=== PATIENT | female | born 1965 | race Caucasian/White ===

== ENCOUNTER → 2017-03-31 | Outpatient (CLI) | payer OTHER ==
--- NOTE | 2017-03-31 14:09 | MH ---
cc: CAIO WILLIAMSON MD, CECILLE A. M.D. DATE OF ADMISSION: 03/31/2017 DATE OF : 1965 REASON FOR ADMISSION Scheduled for admission on 04/06 for anterior posterior repair. HISTORY OF PRESENT ILLNESS The patient is a 52-year-old white female, 1, para 1, with a spontaneous vaginal delivery of a 9 pound baby. She has had issues with pelvic organ prolapse, symptomatic. She was in the office, had stage II/III pelvic organ prolapse anterior and posterior compartment as well as loss of perineal body. The patient has opted for repair. PAST MEDICAL HISTORY The patient's medical history is notable for invasive ductal carcinoma, stage I, presently disease free. MEDICATIONS None. ALLERGIES PENICILLIN GIVES HER A RASH, but she has used cephalosporins. 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 No alcohol, tobacco, caffeine. GYNECOLOGIC HISTORY No STDs or abnormal Pap smears. OBSTETRICAL HISTORY One vaginal delivery. FAMILY HISTORY Noncontributory. REVIEW OF SYSTEMS Review of systems as above. No chest pain, orthopnea, PND. No nausea, vomiting, fever or chills. No vaginal bleeding or discharge. No change in bladder or bowel habits. PHYSICAL EXAMINATION VITAL SIGNS: She is afebrile, vital signs stable. Blood pressure is 120/70, height is 5 feet 6 inches, weight is 140, BMI is 22.5. GENERAL: Patient is alert and oriented, in no acute distress. No sign of cognitive dysfunction or depression. HEENT: Within normal limits. NECK: Supple. No JVD. CHEST: Clear. HEART: Regular rate and rhythm. ABDOMEN: Soft, nontender. No hepatosplenomegaly. No CVA tenderness. PELVIC EXAM: We note Aa is +1, Ap is 0. Point C is -6. Total vaginal length is 10. Genital hiatus is 10. Perineal body is 2. Perineal body is 2. Sacral nerve reflexes are normal. EXTREMITIES: Normal skin without rashes. NEURO EXAM: Nonfocal. No DVT signs. ASSESSMENT Patient with 2/3 pelvic organ prolapse anterior and posterior compartment. Also has large genital hiatus with corresponding diminution and loss of perineal body. The patient and I discussed options for management and treatment. At this point she wants to undergo repair of all areas of prolapse. She is aware of the risks, benefits and alternatives to the planned procedure including damage to surrounding organs, bleeding, infection, failure rates, pain with intercourse, need for catheter, also possibility of new onset stress urinary incontinence. Possibility of fistula and nerve damage were discussed. Also transfusion risks were discussed. At this point we anticipate outpatient procedure. We use DVT prophylaxis with sequential compression device and Ancef 2 grams IV for antibiotic prophylaxis. MD GREGORY Fuentes/TLL /1:31 PM /1:44 PM
[2017-03-31 14:37] LABS: AUTOMATED NEUTROPHIL # 3.7 TH/MM3 (1.8-7.7); BASOPHIL # 0.1 TH/MM3 (0-0.2); BASOPHIL % 0.8 % (0.0-2.0); EOSINOPHIL # 0.2 TH/MM3 (0-0.4); EOSINOPHIL % 2.8 % (0.0-4.0); HEMATOCRIT 38.8 % (35.0-46.0); HEMOGLOBIN 13.4 GM/DL (11.6-15.3); LYMPHOCYTE # 2.1 TH/MM3 (1.0-4.8); MEAN CORPUSCULAR HEMOGLOBIN 30.3 PG (27.0-34.0); MEAN CORPUSCULAR HGB CONC 34.4 % (32.0-36.0); MEAN PLATELET VOLUME 6.7 FL (7.0-11.0); MONO % 9.1 % (0.0-8.0); MONOCYTE # 0.6 TH/MM3 (0-0.9); NEUT % 56.3 % (16.0-70.0); PLATELET COUNT 334 TH/MM3 (150-450); RED BLOOD COUNT 4.41 MIL/MM3 (4.00-5.30); RED CELL DISTRIBUTION WIDTH 13.5 % (11.6-17.2); WHITE BLOOD COUNT 6.7 TH/MM3 (4.0-11.0)
[2017-03-31 14:59] LABS: ALBUMIN 3.9 GM/DL (3.4-5.0); ALT (GPT) 22 U/L (10-53); AST (GOT) 41 U/L (15-37); BICARBONATE 31.8 MEQ/L (21.0-32.0); BLOOD UREA NITROGEN 17 MG/DL (7-18); CALCIUM 8.9 MG/DL (8.5-10.1); CHLORIDE 103 MEQ/L (98-107); CREATININE 0.58 MG/DL (0.50-1.00); GLOMERULAR FILTRATION RATE 109 ML/MIN (>89); GLUCOSE,FASTING 91 MG/DL (74-99); SODIUM (NA) 139 MEQ/L (136-145)
[2017-03-31 15:01] LABS: ALKALINE PHOSPHATASE 80 U/L (45-117); TOTAL BILIRUBIN ADULT 0.3 MG/DL (0.2-1.0); TOTAL PROTEIN 7.7 GM/DL (6.4-8.2)
[2017-03-31 15:26] LABS: BILIRUBIN, URINE NEG (NEG); BLOOD, URINE NEG (NEG); GLUCOSE,URINE NEG (NEG); KETONE, URINE NEG (NEG); NITRITE,URINE NEG (NEG); PH, URINE 6.5 (5.0-8.5); SQUAMOUS EPITHELIAL CELL URINE 4 /hpf (0-5); URINE COLOR YELLOW (YELLW/STRAW); URINE LEUKOCYTE ESTERASE TRACE (NEG)
--- NOTE | 2017-04-02 01:03 | EKG ---
Date Performed: 03/31/2017 Time Performed: 14:02:55 PTAGE: 52 years EKG: Sinus rhythm NORMAL ECG NO PREVIOUS TRACING DOCTOR: Mendoza Reza Interpretating Date/Time 04/02/2017 01:02:16
== END ==
LOC: CPRE 13:43
PROVIDERS: ATTEND Obstetrics & Gynecology Gynecology
DX: Z01.810 Encounter for preprocedural cardiovascular examination (principal); Z01.812 Encounter for preprocedural laboratory examination; N81.11 Cystocele, midline; N81.6 Rectocele
CPT/HCPCS: 36415; 80053; 81001; 85025; 93005

== ENCOUNTER → 2017-04-06 | Day surgery (SDC) | payer OTHER ==
[~2017-04-06] VITALS: Ht 170.2 cm; Wt 67.0 kg
[~2017-04-06] MED LIST: ACETAMINOPHEN 1000 MG/100 ML 100 ML IV ONE; CHLORHEXIDINE GLUCONATE 2 % 1 PACK (2 CLOTHS) TOPICAL PRN; DEXAMETHASONE SOD PHOS 4 MG/ML VIAL IV ONE; DO NOT ADM ANY ANTICOAGULANT DRUGS PRN; ESTROGENS CONJUGATED VAG CREA 15 APPL/30 GM TUBE ONE; FLUORESCEIN SOD 10% SOLN 500 MG/5 ML AMP ONE; KETOROLAC TROMETHAMINE 30 MG/ML (IVP) VIAL IV PUSH ONE; KETOROLAC TROMETHAMINE 30 MG/ML (IVP) VIAL IV PUSH PRN; LACTATED RINGER'S 1000 ML INJ 1,000 ML IV ONE; LACTATED RINGER'S 1000 ML IV PRN; LIDOCAINE 1%/EPINEPHrine 1:100,000 SOLN 50 ML VIAL ONE; LIDOCAINE HCL 1% PF 5 ML SYRINGE OTHER ONE; METOPROLOL TARTRATE 25 MG TAB PO PRN; MIDAZOLAM HCL 2 MG/2 ML VIAL ONE; ONDANSETRON HCL 4 MG/2 ML VIAL IV ONE; ONDANSETRON HCL 4 MG/2 ML VIAL IV PUSH PRN; POVIDONE IODINE 5% (ANTISEPSIS KIT) 4 APPLICATIONS EACH NARE PRN; PROPOFOL 200 MG/20 ML AMP IV ONE; SODIUM CHLORID 0.9% 500 ML IV PRN; ceFAZolin 2 GM PREMIX 50 ML IV SCH; ePHEDrine/NS 25 MG/5 ML SYRINGE IV ONE; traMADol HCL 50 MG TAB PO PRN
[2017-04-06 12:00] VITALS: BP 113/72; PULSE 79; RESP 18; TEMP 97.9; O2SAT 100
--- NOTE | 2017-04-06 13:21 | MP ---
cc: BRENDA JUAREZ M.D., CHRISTOPHER DATE OF SURGERY 04/06/2017 PREOPERATIVE DIAGNOSES 1. Midline cystocele code N81.11 2. Rectocele code N81.6. POSTOPERATIVE DIAGNOSES 1. Midline cystocele code N81.11 2. Rectocele code N81.6. 3. Uterine prolapse code N81.2. 4. Cervical polyp PROCEDURE 1. Anterior/posterior repair with enterocele 73722. 2. Extraperitoneal colpopexy 52837. 3. Diagnostic cystoscopy 31102 4. Excision of cervical polyp. SURGEON Harvey Arana MD ANESTHESIA Laryngeal mask NIGHT ASSISTANT [place] staff x2 BLOOD LOSS 25 cc FLUIDS 1000 cc crystalloid URINE OUTPUT 200 cc FINDINGS External genitalia, Pop-Q score Aa is +1, Ap is +1. Point C is -4, total vaginal length 10, genital hiatus 10, perineal body is 4. Following repair Pop-Q score Aa is -3, Ap is -3. Point C is -8, total vaginal length 10, genital hiatus 6, perineal body is 4. Cystoscopy following repair, shows normal trigone, good coaptation of urethra. Ureteral orifices patent x2. Dome and base of the bladder normal. Rectal exam following repair is normal. SPECIMENS Cervical polyp COMPLICATIONS None DISPOSITION To recovery room stable. COUNTS Needle and sponge counts correct. DRAINS Connolly catheter ANTIBIOTIC PROPHYLAXIS Ancef 2 grams. DVT PROPHYLAXIS Sequential compression device. Time out and identification procedure per protocol. SUMMARY OF INDICATIONS FOR THE PROCEDURE Patient with symptomatic pelvic organ prolapse. PROCEDURE NOTE The patient was taken to the operating room theater, identified, prepped and draped in a fashion appropriate for the planned procedure. She was in the dorsal lithotomy position with careful attention paid to placement of legs in the stirrups to avoid undue stress to sensitive neurovascular structures. The above findings noted. Neurovascular integrity documented. Connolly catheter was placed and methylene blue was instilled into the bladder. The most pronounced defect was the anterior compartment. This area was identified, infiltrated with epinephrine/lidocaine solution. A midline incision was made, bladder was reflected, there was no spill of methylene blue with dissection. Standard imbrication technique was used with delayed absorbable suture. The vaginal mucosa was trimmed and closed with running Vicryl suture and hemostatic matrix was used to obviate the need for packing. Cystoscopy with a 17-[place] bridge, a 70 degrees scope showed good coaptation of urethra, ureteral orifices patent x2, dome and base of bladder normal. The patient received IV fluorescein and ureteral patency was easily documented. The attention was turned to the posterior compartment. As we were identifying the cervix, we noted a small polyp on the cervix at approximately the 3 o'clock position. This was biopsied off in his entirety and a small area of defect was rendered hemostatic with Bovie. Posterior repair was performed in standard fashion with infiltration of epinephrine/lidocaine solution. A midline incision was taken up to the cervix. Perirectal tissues were dissected from the vaginal mucosa. Enterocele was encountered and closed in standard fashion with one finger in the rectum to make sure we had good traction and countertraction and no damage to the rectum was identified. Colpopexy was performed without complication. The vaginal mucosa was trimmed. The vaginal mucosa was closed with a running Vicryl suture. Hemostatic matrix was used to obviate the need for packing. Suture line intact and hemostatic. Rectal exam normal. Above findings noted. Procedure concluded. The patient sent to recovery room in stable condition. MD GREGORY Fuentes/DAVIE /12:13 PM /1:06 PM JAMIE
== END | disposition home or self-care (01) ==
LOC: HSDC 05:59
PROVIDERS: ATTEND Obstetrics & Gynecology Gynecology
DX: N81.11 Cystocele, midline (principal); N81.6 Rectocele; N84.1 Polyp of cervix uteri
CPT/HCPCS: 00840; 57265; 57282; 57500; 88305; J0131; J0690; J1100; J1885; J2250; J2405; J3010; J7120